=== PATIENT | female | born 1955 | race Caucasian/White ===

== ENCOUNTER → 2021-08-31 | Outpatient (CLI) | payer MEDICARE, OTHER ==
[2021-08-31 09:46] LABS: HCT 42.2 % (34.0-46.0); HGB 13.9 gm/dL (11.4-16.0); MCH 28.8 pg (25.0-35.0); MCV 87.3 fL (80.0-100.0); Mean Platelet Volume 7.4; Platelet Count 268 k/uL (150-450); RBC 4.83 m/uL (3.80-5.40); RDW 14.3 % (11.5-15.5); WBC 6.6 k/uL (3.8-10.6)
[2021-08-31 09:53] LABS: Appearance,Urine Clear (Clear); Bacteria,Urine Rare /hpf; Bilirubin,Urine 2+ (Negative); Blood,Urine Negative (Negative); Color,Urine Yellow; Glucose,Urine (UA) Negative (Negative); Ketones,Urine 1+ (Negative); Leukocyte Esterase,Urine Small (Negative); Nitrite,Urine Negative (Negative); Protein,Urine Negative (Negative); RBC,Urine 2 /hpf (0-5); Specific Gravity,Urine 1.014 (1.001-1.035); Squamous Epithelial Cell,Urine 2 /hpf (0-4); Urobilinogen,Urine <2.0 mg/dL (<2.0); WBC,Urine 5 /hpf (0-5)
[2021-08-31 09:58] LABS: INR 0.9 (<1.2)
[2021-08-31 09:59] LABS: Partial Thromboplastin Time 24.7 sec (22.0-30.0); Prothrombin Time 10.1 sec (9.0-12.0)
[2021-08-31 10:11] LABS: ALT 62 U/L (4-34); AST 37 U/L (14-36); African American GFR (CKD) >90 (>60 ml/min/1.73 sqM); Albumin 4.2 g/dL (3.5-5.0); Alkaline Phosphatase 142 U/L (38-126); Anion Gap 11 mmol/L; Blood Urea Nitrogen 17 mg/dL (7-17); Calcium 10.4 mg/dL (8.4-10.2); Carbon Dioxide 27 mmol/L (22-30); Chloride 101 mmol/L (98-107); Glucose 109 mg/dL (74-99); Non-African American GFR(CKD) >90 (>60 ml/min/1.73 sqM); Potassium 3.9 mmol/L (3.5-5.1); Sodium 139 mmol/L (137-145); Total Bilirubin 0.9 mg/dL (0.2-1.3); Total Protein 7.5 g/dL (6.3-8.2)
== END | disposition home or self-care (01) ==
LOC: LABPAT 08:36
PROVIDERS: ATTEND Orthopaedic Surgery Hand Surgery
DX: Z01.812 Encounter for preprocedural laboratory examination (principal)
CPT/HCPCS: 80053; 81001; 85027; 85610; 85730; 87070

== ENCOUNTER 2021-09-07 07:44 | Day surgery (SDC) | payer MEDICARE, OTHER ==
[2021-09-03 11:55] VITALS: BMI 39.1
[~2021-09-07 07:44] MED LIST: ACETAMINOPHEN TAB 500 MG TAB PO PRN; GABAPENTIN 300 MG CAP PO PRN; LACTATED RINGERS 1,000 ML IV SCH; LIDOCAINE 1% (10MG/ML) FOR IV START INTRADERMA PRN; MELOXICAM 7.5 MG TAB PO PRN; ONDANSETRON 4 MG/2 ML VIAL IVP ONE; TRANEXAMIC ACID 1,000 MG in SODIUM CHLORIDE 0.9% 100 ML IVPB PRN
[2021-09-07] MEDS ORDERED: HYDROmorphone (PF) 1 MG/ML ONE (08:53)
[2021-09-07] MEDS ORDERED: SUCCINYLCHOLINE CHLORIDE VIAL 200 MG/10 ML VIAL IV ONE (08:53)
[2021-09-07] MEDS ORDERED: fentaNYL (PF) 50 MCG/ML 2 ML AMP ONE (08:53)
[2021-09-07] MEDS ORDERED: HEPARIN SODIUM,PORCINE 10,000 UNIT/ML 1 ML VIAL ONE (08:53)
[2021-09-07] MEDS ORDERED: SODIUM CHLORIDE 0.9% IRRIG 1,000 ML BTL IRRIGATION ONE (08:53)
[2021-09-07] MEDS ORDERED: MIDAZOLAM 2 MG/2 ML VIAL ONE (08:53)
[2021-09-07] MEDS ORDERED: PROPOFOL 10 MG/ML 20 ML VIAL IV ONE (08:53)
[2021-09-07] MEDS ORDERED: SODIUM CHLORIDE 0.9% 100 ML BAG ONE (08:53)
[2021-09-07] MEDS ORDERED: LIDOCAINE 1% INJ 10MG/ML (20 ML MDV) ONE (08:53)
[2021-09-07] MEDS ORDERED: KETAMINE 10 MG/ML 20 ML VIAL ONE (08:53)
[2021-09-07] MEDS ORDERED: TRANEXAMIC ACID 1,000 MG/10 ML VIAL ONE (08:53)
[2021-09-07] MEDS ORDERED: ceFAZolin 1,000 MG in SODIUM CHLORIDE 0.9% 1,000 ML IRRIGATION ONE (08:56)
[2021-09-07] MEDS ORDERED: HYDROmorphone 0.5 MG/0.5 ML SYRINGE IVP PRN ×2 (08:57)
[2021-09-07] MEDS ORDERED: NALOXONE 0.4 MG/ML 1 ML VIAL IV PRN (08:57)
[2021-09-07] MEDS ORDERED: ONDANSETRON 4 MG/2 ML VIAL IVP PRN (08:57)
[2021-09-07] MEDS ORDERED: HYDROmorphone 0.2 MG/1 ML SYRINGE IVP PRN (08:57)
[2021-09-07] MEDS ORDERED: HYDROcodone/APAP 7.5-325MG 1 EACH TAB PO PRN ×2 (08:58)
[2021-09-07] MEDS ORDERED: SODIUM CHLORIDE 0.9% 1,000 ML IV SCH (09:00)
[2021-09-07] MEDS: ROPIVACAINE 246.25 MG, EPINEPHrine 0.5 MG, KETOROLAC 30 MG, cloNIDine HCL/PF 80 MCG, WA... MISCELLANE PRN ×10 (09:24→10:11)
--- NOTE | 2021-09-07 10:16 | P.OP ---
Date of Procedure: 09/07/21 Preoperative Diagnosis: Severe osteoarthritis right hip Postoperative Diagnosis: Severe osteoarthritis right hip Procedure(s) Performed: Right total hip arthroplasty with a direct anterior approach Implants: [employer] Nephew Polarstem standard size 3 [employer]hew R3, 3 hole hemispherical acetabular shell, 52 mm [employer]hew Reflection 6.5 mm cancellus screw, 20 mm 2 [employer] R3, XLPE 20 acetabular liner [employer] Nephew Oxinium femoral head 36 m, +0 All components were press-fit. The articulation is Oxinium on polyethylene. Anesthesia: GETA Surgeon: Rajinder Ramsey Waste Machine Offbearer #1: Miriam Engle Estimated Blood Loss (ml): 100 Pathology: other (Femoral head) Condition: stable Disposition: PACU Indications for Procedure: After failure of conservative treatment we discussed the surgical and nonsurgica l treatment options at length. Patient wishes to proceed with a total hip arthroplasty with a direct anterior approach. Complications specific to this procedure were discussed at length, including but not limited to infection, leg length discrepancy, dislocation, nerve injury, and fracture. Covid-19 was also discussed at length with the patient, and they are aware of the current policies and procedures. The patient was given the option of delaying surgery, but they elect to proceed knowing these risks. Patient is aware of all these complications and informed consent was obtained Operative Findings: The operative findings are consistent with severe osteoarthritis of the right hip Description of Procedure: Patient was seen and evaluated in the preoperative area and the consent was reviewed. The operative site was marked with a skin marker. The patient was then brought to the operating room and given preoperative antibiotics intravenously. 1 g of Tranexamic acid was also given intravenously. A general anesthetic was administered by the anesthesia department. The patient was then placed on the [place] table with the bony prominences well-padded. The hip area was then prepped with a ChloraPrep solution and draped in the usual sterile fashion. A universal timeout was then performed, which confirmed the patient's name, surgical site, ALLERGIES, and procedure being performed on the consent. Next the incision site was located at 1 cm distal and 2 cm lateral to the anterior superior iliac spine. The skin and subcutaneous tissues were sharply incised. Incision was carefully dissected down to the fascia overlying the tensor fascia vera muscle. This fascia was then incised in line with the incision. Care was taken to stay laterally in order to avoid injuring the lateral femoral cutaneous nerve. Next, using blunt finger dissection, the tensor fascia vera muscle was dissected off its investing fascia. The muscle was then carefully retracted laterally with a cobra retractor over the lateral neck of the femur. Next, the circumflex vessels were identified and cauterized using the AquaMantis device. The anterior hip capsule was then exposed. The capsule was then opened and an inverted T fashion. Cobra retractors were then placed intracapsularly. The retractors were maintained intracapsular throughout the procedure. The proximal femur was then visualized. A small amount of traction was placed on the leg. The femoral neck was then osteotomized appropriate level above the lesser trochanter. A small wedge of bone was then removed from the remaining femoral head. Next, using a corkscrew the femoral head was removed from the acetabulum. On gross visual inspection, the femoral head had complete loss of articular cartilage and multiple periarticular osteophytes. The femoral head was then measured. Attention was then turned to the acetabulum. The acetabulum was exposed and any remaining labrum was excised. Sequential reaming of the acetabulum was performed using fluoroscopic guidance until there was a good bed of bleeding cancellus bone. When the appropriate size was reached, a trial was then placed. The position and fit of the trial was checked with fluoroscopy. The trial was then removed. Then, using fluoroscopic guidance, the final implant was impacted at 20 of anteversion and 40 of abduction, and fully seated in the acetabulum. 2 screws were then placed in the acetabulum. Again fluoroscopy was used to check position of the screws. Next, the liner was then impacted, with a 20 elevated liner located in the anterior superior quadrant. Component locking was confirmed. Attention was then directed to the femur. With the aid of the [place] table, the femur was externally rotated to approximately 130, extended, and adducted under the opposite leg. A side hook was then placed under the proximal femur, and the side hook elevator was used to elevate the proximal femur while releasing the capsule. Retractors were then placed. A capsular release was performed, as well as a release of the conjoined tendon, which afforded excellent visualization of the proximal femur. Next, a box osteotome was used to lateralize the proximal femur. A marker hand was then used to locate the femoral canal. Sequential broaching was then performed with appropriate size which afforded excellent fixation in the proximal femur. A trial was then placed with appropriate head and neck, and the hip was gently reduced with the aid of the [place] table. Fluoroscopy was then used to check position of the components, as well as to ensure equal leg lengths. The hip was then gently dislocated and the trials were then removed. Final implants were then impacted and the hip was again reduced. Final fluoroscopic x-rays confirmed that the components were in anatomic position, as well as equal leg lengths. The hip was also taken through range of motion, and found to be stable. The hip was then copiously irrigated with antibiotic solution with pulsatile lavage. The hip was then irrigated with Irrisept solution. The soft tissues were then injected with a ropivacaine solution, which consisted of 246.25 mg of ropivacaine, 0.5 mg of epinephrine, 30 mg of Toradol, 80 g of clonidine, and 48.45 mL of sterile water, for a total of 100 mL of fluid injected. A second dose of 1 g of Tranexamic acid was also given intravenously. Any blood collected by Cell [employer]ver was then returned to the patient at this time. The fascia was then closed with 2-0 strata fix suture. The subcutaneous tissue was closed with 3-0 Vicryl. The subcuticular tissue was closed with 3-0 strata fix suture. The skin was then closed with Exofin skin glue. After the glue and dried, and Optifoam silver impregnated dressing was applied. The patient was then transferred to the recovery room in stable condition. The senior executive assistant SE Ochoa was required due to the complexity of surgery, and the need for skilled surgical scrub technician for positioning, draping, exposure, retraction, and closure of the wound.
--- NOTE | 2021-09-07 10:26 | XR ---
EXAMINATION TYPE: XR Hip Limited RT DATE OF EXAM: 09/07/2021 COMPARISON: NONE HISTORY: Postop TECHNIQUE: One view submitted. FINDINGS: There is postsurgical change in near anatomic alignment. There is soft tissue edema and emphysema. IMPRESSION: 1. Postoperative change. Appears in near-anatomic alignment.
--- NOTE | 2021-09-07 10:30 | FL ---
EXAMINATION TYPE: FL guidance operating room DATE OF EXAM: 09/07/2021 HISTORY: Fluoroscopy time 8 seconds of fluoroscopy provided. IMPRESSION: 1. Fluoroscopy time.
[2021-09-07] MEDS ORDERED: diphenhydrAMINE 50 MG/ML 1 ML VIAL ONE (10:57)
[2021-09-07] MEDS ORDERED: KETOROLAC 15 MG/ML 1 ML VIAL ONE (10:57)
[2021-09-07] MEDS: HYDROmorphone 0.5 MG/0.5 ML SYRINGE IVP PRN ×2 (10:58→11:26)
[2021-09-07] MEDS ORDERED: diphenhydrAMINE 50 MG/ML 1 ML VIAL IVP ONE ×2 (11:00→11:05)
[2021-09-07 11:01] VITALS: TEMP 97.7
[2021-09-07] MEDS ORDERED: KETOROLAC 15 MG/ML 1 ML VIAL IVP ONE (11:02)
--- NOTE | 2021-09-07 11:50 | XR ---
EXAMINATION TYPE: XR Hip Limited RT DATE OF EXAM: 09/07/2021 Comparison: None Clinical History: 66-year-old female Status post hip surgery, assess surgical alignment Findings: Image shows placement of right internal artery plasty. Both acetabular cup and femoral stem component s of the prosthesis appear well seated without periprosthetic fracture. Alignment grossly anatomic. S ome degenerative subarticular sclerosis at the right SI joint. A surgical clip is present in the righ t side of the pelvis. Some densities adjacent to the ischial tuberosity could represent chronic tendi nopathy of the hamstrings origin. Scattered soft tissue air related to recent operation. Impression: Uncomplicated postoperative appearance right hip total arthroplasty.
[2021-09-07 13:36] VITALS: RESP 16
[2021-09-07 14:14] VITALS: BP 103/66; PULSE 77
== END 2021-09-07 14:55 | disposition home health service (06) ==
LOC: OR 07:44
PROVIDERS: ATTEND Orthopaedic Surgery
DX: M16.11 Unilateral primary osteoarthritis, right hip (principal); I10 Essential (primary) hypertension; E78.5 Hyperlipidemia, unspecified
CPT/HCPCS: 27130; 97110; 97161; 86891; 88300; 73501; C1776; J2250; J0171; J0330; J1200; J1644; J0690 ×2; J2405; J2001; J3010; J1885 ×2; J1170 ×2; J2795; J2704; J0735; 86850; 86900; 86901

== ENCOUNTER 2022-04-01 07:28 | Day surgery (SDC) | payer MEDICARE, OTHER ==
[2022-03-30 11:44] VITALS: BMI 42.3
[~2022-04-01 07:28] MED LIST changes: -ACETAMINOPHEN TAB 500 MG TAB PO PRN; +DEXAMETHASONE SOD PHOSPHATE 4 MG/ML 1 ML VIAL IV ONE; -GABAPENTIN 300 MG CAP PO PRN; +HYDROmorphone 0.5 MG/0.5 ML SYRINGE IVP PRN; -MELOXICAM 7.5 MG TAB PO PRN; +Pre Op ABX Message 1 EACH MISC MISCELLANE ONE; -TRANEXAMIC ACID 1,000 MG in SODIUM CHLORIDE 0.9% 100 ML IVPB PRN
[2022-04-01 08:54] LABS: Basophils % (A) 1 %; Eosinophils # (A) 0.2 k/uL (0-0.7); Eosinophils % (A) 4 %; HCT 38.9 % (34.0-46.0); HGB 12.8 gm/dL (11.4-16.0); Lymphocytes # (A) 1.4 k/uL (1.0-4.8); Lymphocytes % (A) 24 %; MCH 29.4 pg (25.0-35.0); MCHC 32.8 g/dL (31.0-37.0); MCV 89.5 fL (80.0-100.0); Mean Platelet Volume 8.3; Monocytes # (A) 0.4 k/uL (0-1.0); Monocytes % (A) 7 %; Neutrophils # (A) 3.6 k/uL (1.3-7.7); Neutrophils % (A) 62 %; Platelet Count 261 k/uL (150-450); RBC 4.35 m/uL (3.80-5.40); RDW 14.6 % (11.5-15.5); WBC 5.7 k/uL (3.8-10.6)
[2022-04-01] MEDS ORDERED: fentaNYL (PF) 50 MCG/ML 2 ML AMP IVP ONE (08:59)
[2022-04-01] MEDS ORDERED: MIDAZOLAM 2 MG/2 ML VIAL IVP ONE (08:59)
[2022-04-01 09:01] LABS: ALT 22 U/L (4-34); AST 27 U/L (14-36); African American GFR (CKD) >90 (>60 ml/min/1.73 sqM); Alkaline Phosphatase 84 U/L (38-126); Anion Gap 7 mmol/L; Blood Urea Nitrogen 15 mg/dL (7-17); Calcium 9.3 mg/dL (8.4-10.2); Carbon Dioxide 27 mmol/L (22-30); Chloride 105 mmol/L (98-107); Glucose 93 mg/dL (74-99); Non-African American GFR(CKD) >90 (>60 ml/min/1.73 sqM); Potassium 4.2 mmol/L (3.5-5.1); Sodium 139 mmol/L (137-145); Total Bilirubin 0.8 mg/dL (0.2-1.3); Total Protein 7.1 g/dL (6.3-8.2)
[2022-04-01] MEDS ORDERED: ROPIVACAINE 5 MG/ML 30 ML VIAL ONE (09:30)
[2022-04-01] MEDS ORDERED: SODIUM CHLORIDE 0.9% (PF) 10 ML VIAL ONE (09:30)
[2022-04-01] MEDS ORDERED: fentaNYL (PF) 50 MCG/ML 2 ML AMP ONE (09:30)
[2022-04-01] MEDS ORDERED: LIDOCAINE 2% INJ 20 MG/ML (2 ML VIAL) ONE (09:30)
[2022-04-01] MEDS ORDERED: HYDROmorphone (PF) 1 MG/ML ONE (09:30)
[2022-04-01] MEDS ORDERED: PROPOFOL 10 MG/ML 20 ML VIAL IV ONE (09:30)
[2022-04-01] MEDS ORDERED: MIDAZOLAM 2 MG/2 ML VIAL ONE (09:30)
[2022-04-01] MEDS ORDERED: SUCCINYLCHOLINE CHLORIDE 100 MG/5 ML SYR IV ONE (09:30)
[2022-04-01] MEDS ORDERED: SODIUM CHLORIDE 0.9% 100 ML with ceFAZolin 3,000 MG IV ONE ×2 (09:40)
--- NOTE | 2022-04-01 09:47 | P.ANPRN ---
Procedure Note - Anesthesia - Nerve Block Performed Right Adductor Canal Time Out Performed: Yes (08:58) Date of Procedure: 04/01/22 Procedure Start Time: Procedure Stop Time: : Location of Patient: PreOp Indication: Acute Post-Operative Pain, Requested by Surgeon (DR Dobbins) Sedation Type: Sedate with meaningful contact maintained Preparation: Sterile Prep Position: Supine Catheter: None Needle Types: Pajunk Needle Gauge: 21 Ultrasound used to visualize needle placement: Yes Ultrasound used to observe medication spread: Yes Injectate: 0.5% Ropivacaine (see comment for volume) (15cc + 5 cc PF Normal saline) Blood Aspirated: No Pain Paresthesia on Injection Noted: No Resistance on Injection: Normal Image Stored and Saved: Yes Events: Uneventful and Well Tolerated
--- NOTE | 2022-04-01 09:49 | P.ANPRN ---
Procedure Note - Anesthesia - Nerve Block Performed Right Popliteal Time Out Performed: Yes Date of Procedure: 04/01/22 Procedure Start Time: :10 Procedure Stop Time: : Location of Patient: PreOp Indication: Acute Post-Operative Pain, Requested by Surgeon (Dr Dobbins) Sedation Type: Sedate with meaningful contact maintained Preparation: Sterile Prep Position: Left Lateral Catheter: None Needle Types: Pajunk Needle Gauge: 21 Ultrasound used to visualize needle placement: Yes Ultrasound used to observe medication spread: Yes Injectate: 0.5% Ropivacaine (see comment for volume) (15cc +5 cc PF Normal saline) Blood Aspirated: No Pain Paresthesia on Injection Noted: No Resistance on Injection: Normal Image Stored and Saved: Yes Events: Uneventful and Well Tolerated
[2022-04-01] MEDS ORDERED: ceFAZolin 1,000 MG in SODIUM CHLORIDE 0.9% 1,000 ML IRRIGATION ONE (10:28)
[2022-04-01] MEDS ORDERED: ALBUTEROL NEBULIZED 2.5 MG/3 ML INHALATION ONE (12:50)
[2022-04-01 12:56] VITALS: TEMP 97.6
[2022-04-01 14:13] VITALS: BP 150/76
[2022-04-01 15:20] VITALS: PULSE 93; RESP 20
--- NOTE | 2022-04-21 08:09 | P.OP ---
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 Gastroc equinus right ankle Postoperative Diagnosis: 1. Same 2. Same Procedure(s) Performed: 1. Triple arthrodesis right foot 2. Percutaneous tendo Achilles lengthening right ankle Implants: 7.0 CREED screws x 2 [id number] compression angely x 2 5.0 threaded head screw Anesthesia: GABINO Surgeon: Eduar Dobbins Estimated Blood Loss (ml): 20 Pathology: none sent Condition: stable Disposition: PACU Description of Procedure: Prior to the patient being brought to the OR, anesthesia administered a nerve block on the affected extremity. Then the patient was brought in the operating room and placed on the table in the supine position. Time out was taken to confirm patient identifiers, correct procedure and correct laterality of surgery. When all staff in the room were in agreement with the time out, anesthesia induced and placed the patient under general anesthesia. A well padded tourniquet was applied to the thigh of the operative leg and then the leg was prepped and draped in the usual manner. The leg was exanguinated with a Esmarch bandage, and the tourniquet was inflated to 250 mmHg. Attention was directed to the lateral hindfoot wear a curvilinear incision was made from the tip of the fibula to the dorsal aspect of the cuboid, which also included the calcaneal-cuboid joint. The incision was deepened to the subQ careful to identify, avoid and retract any neurovascular structures and cauterizing any bleeding vessels. Blunt dissection was carried down to the joint capsule of the subtalar joint. A capsular incision was made to expose the joint. Using a combination of various instruments, the articular cartilage and subchondral bone was completely debrided. The joint surfaces were then aggressively fenestrated to promote bleeding. Then 10cc of BMP with cancellous chips were placed between the fusion surfaces. Then, under direct fluoroscopic visualization, guidepins for 7.0mm screws were inserted on the posterior-plantar aspect of the calcaneus, just inferior to the Achilles insertion. Then, with the hindfoot held in corrected alignment, screws were placed over the guidewires and advanced until the distal threads crossed the arthrodesis site and the heads wer e flush with the cortex of the calcaneus. Once the screws were in place, direct and fluoroscopic visualization confirmed compression of the arthrodesis site. Then the calcaneal-cuboid joint was entered and the capsule incised. A sagittal saw was used to remove the articular cartilage and subchondral bone. The surfaces were then brought in contact and the saw blade inserted to provide flat, even contact. 2cc of BMP with cancellous ships were placed between the fusion segments. A guidewire was placed across the joint for temporary fixation. Then drill holes for a compression staple were made through the provided guide on either side of the fusion site. The staple was placed in the barrow worker helper with the legs and 90 deg angles. The staple was inserted into the drill holes and placed as deep as the barrow worker helper would allow. Then the barrow worker helper was released to allow for the staple legs to compress. The staple was then impacted to set as flush to the bone as possible. The fusion site was in good contact and stable. Proper positioning and compression of the fusion site were confirmed with fluoroscopy. The area was then thoroughly irrigated with sterile saline. Deep capsular closure was completed with 0 Vicryl, fascial closure was done with 2-0 Vicryl, subcutaneous closure with 4-0 Monocryl and the skin closed with angely. Attention was then directed over the posterior ankle. Small stab incisions were made beginning approximately 1.5cm from the insertion and each was spaced 1.5cm apart, 2 on the medial and one on the lateral. The scalpel blade was advanced and approx 1/3 of the tendon was resected as the ankle was dorsiflexed until a palpable release was felt. There was increased ankle dorsiflexion upon release. The incisions were closed with angely. Attention was then directed to the medial aspect of the foot. A linear incision was made over the midfoot for access to the taolnavicular joint. The incision was deepened to the subQ careful to identify, avoid and retract any neurovasc ular structures and cauterizing any bleeding vessels. A capsular incision was made over the talonavicular joint and then the tissue was reflected to expose the joint.Using a combination of various instruments, the articular cartilage and subchondral bone was completely debrided. The joint surfaces were then aggressively fenestrated to promote bleeding. The wound was irrigated with sterile saline. Then 5cc of BMP with cancellous bone chips was placed between the fusion segments. The joint was held into corrected alignment and then a guidewire for a 5mm cannulated screw was placed from the navicular and into the talus. Fluoroscopy was used to confirm the proper placement of the wire. A 5mm headless compression screw was then placed over the wire and advanced until the distal threads were past the arthrodesis site and the threads on the head full seated and engaged in the navicular. Fluoroscopy confirmed proper placement of the screw. hen drill holes for a compression staple were made through the provided guide on either side of the fusion site. The staple was placed in the barrow worker helper with the legs and 90 deg angles. The staple was inserted into the drill holes and placed as deep as the barrow worker helper would allow. Then the barrow worker helper was released to allow for the staple legs to compress. The staple was then impacted to set as flush to the bone as possible. The fusion site was in good contact and stable. Proper positioning and compression of the fusion site were confirmed with fluoroscopy. The area was then thoroughly irrigated with sterile saline. Deep capsular closure was completed with 0 Vicryl, fascial closure was done with 2-0 Vicryl, subcutaneous closure with 4-0 Monocryl and the skin closed with angely. final fluoroscopic imaging confirmed correction of the deformity, proper placement of all hardware and good bony contact across all fusion sites. An Arthrex Jumpstart dressing was applied over all incisions. Then a bulky, dry dressing was applied to the foot and ankle. The tourniquet was released and CFT returned to all digits on the foot. The patient was then placed in a well padded. well molded plaster posterior mold/sugartong splint. The foot and ankle were held in neutral until the splint was dry. Then anesthesia was reversed and the patient take to recovery with vital signs stable.
== END 2022-04-01 15:10 | disposition home or self-care (01) ==
LOC: OR 07:28
PROVIDERS: ATTEND Podiatrist
DX: M21.41 Flat foot [pes planus] (acquired), right foot (principal); I10 Essential (primary) hypertension; E78.5 Hyperlipidemia, unspecified; M54.9 Dorsalgia, unspecified; R63.5 Abnormal weight gain; Z97.3 Presence of spectacles and contact lenses; M19.90 Unspecified osteoarthritis, unspecified site; Z90.49 Acquired absence of other specified parts of digestive tract; Z96.641 Presence of right artificial hip joint; Z98.890 Other specified postprocedural states; Z83.3 Family history of diabetes mellitus; Z82.49 Family history of ischemic heart disease and other diseases of the circulatory system; Z87.891 Personal history of nicotine dependence; Z79.1 Long term (current) use of non-steroidal anti-inflammatories (NSAID); Z79.899 Other long term (current) drug therapy; Z88.1 Allergy status to other antibiotic agents
CPT/HCPCS: 64447; 64445; 76942; 80053; 85025; 28715; C1713; J2250; J1100; J2405; J0690; J3010; J1170; J2795; J0330; J2704; J2001

== ENCOUNTER 2023-03-10 05:49 | Day surgery (SDC) | payer MEDICARE, OTHER ==
[2023-03-06 18:17] VITALS: BMI 45.4
[~2023-03-10 05:49] MED LIST changes: -DEXAMETHASONE SOD PHOSPHATE 4 MG/ML 1 ML VIAL IV ONE; -HYDROmorphone 0.5 MG/0.5 ML SYRINGE IVP PRN; -LACTATED RINGERS 1,000 ML IV SCH; -LIDOCAINE 1% (10MG/ML) FOR IV START INTRADERMA PRN; -ONDANSETRON 4 MG/2 ML VIAL IVP ONE; -Pre Op ABX Message 1 EACH MISC MISCELLANE ONE; +ceFAZolin 3 GM in SODIUM CHLORIDE 0.9% 100 ML IVPB PRN
[2023-03-10] MEDS ORDERED: MIDAZOLAM 2 MG/2 ML VIAL IV PRN (06:17)
[2023-03-10] MEDS ORDERED: DEXAMETHASONE SOD PHOSPHATE 4 MG/ML 1 ML VIAL IV ONE (06:17)
[2023-03-10] MEDS ORDERED: ONDANSETRON 4 MG/2 ML VIAL IVP ONE ×2 (06:17→11:42)
[2023-03-10] MEDS: LACTATED RINGERS 1,000 ML IV SCH ×2 (06:39→07:24)
[2023-03-10] MEDS ORDERED: fentaNYL (PF) 50 MCG/ML 2 ML AMP IVP ONE (06:53)
[2023-03-10] MEDS ORDERED: MIDAZOLAM 2 MG/2 ML VIAL ONE (07:21)
[2023-03-10] MEDS ORDERED: SUCCINYLCHOLINE CHLORIDE 200 MG/10 ML VIAL IV ONE (07:21)
[2023-03-10] MEDS ORDERED: PHENYLEPHRINE-0.9% NACL SYG 1,000 MCG/10 ML SYRINGE ONE (07:21)
[2023-03-10] MEDS ORDERED: LIDOCAINE 4% LTA KIT (4 ML) TOPICAL ONE (07:21)
[2023-03-10] MEDS ORDERED: ROPIVACAINE 5 MG/ML 30 ML VIAL ONE (07:21)
[2023-03-10] MEDS ORDERED: fentaNYL (PF) 50 MCG/ML 2 ML AMP ONE (07:21)
[2023-03-10] MEDS ORDERED: SODIUM CHLORIDE 0.9% (PF) 10 ML VIAL ONE (07:21)
[2023-03-10] MEDS ORDERED: LIDOCAINE 2% INJ 20 MG/ML (2 ML VIAL) ONE (07:21)
[2023-03-10] MEDS ORDERED: ePHEDrine 50 MG/ML 1 ML VIAL ONE (07:21)
[2023-03-10] MEDS ORDERED: PROPOFOL 10 MG/ML 20 ML VIAL IV ONE (07:21)
[2023-03-10] MEDS ORDERED: ceFAZolin 1,000 MG in SODIUM CHLORIDE 0.9% 1,000 ML IRRIGATION ONE (07:26)
[2023-03-10] MEDS ORDERED: LACTATED RINGERS 1,000 ML IV ONE (09:00)
[2023-03-10 09:54] VITALS: TEMP 97
[2023-03-10] MEDS: HYDROmorphone 0.5 MG/0.5 ML SYRINGE IVP PRN ×3 (10:06→10:30)
[2023-03-10 10:20] VITALS: RESP 18
[2023-03-10] MEDS ORDERED: ALBUTEROL NEBULIZED 2.5 MG/3 ML INHALATION ONE (10:47)
[2023-03-10] MEDS ORDERED: HYDROcodone/APAP 7.5-325MG 1 EACH TAB ONE (11:29)
[2023-03-10] MEDS ORDERED: HYDROcodone/APAP 7.5-325MG 1 EACH TAB PO ONE (11:30)
[2023-03-10] MEDS ORDERED: ONDANSETRON 4 MG/2 ML VIAL ONE (11:40)
--- NOTE | 2023-03-10 12:18 | P.OP ---
Date of Procedure: 03/10/23 Preoperative Diagnosis: Acquired deformity of left foot Postoperative Diagnosis: Same Procedure(s) Performed: Triple arthrodesis left foot Implants: CREED cannulated screws 4 Medline compression staple 2 ProteOS allograft 15 mL Anesthesia: GETA Surgeon: Eduar Dobbins Estimated Blood Loss (ml): 20 Pathology: none sent Condition: stable Disposition: PACU Description of Procedure: Prior to the patient being brought to the operating, anesthesia administered nerve block and left lower extremity. The patient was then brought into the operative room and placed on table in supine position. Timeout was taken to confirm correct patient identifiers, correct laterally of surgery, correct procedure. When all staff in the room were in agreement with the timeout the patient was induced and placed under general anesthesia. A well-padded tourniquet was placed the left thigh and a wedge underneath the left hip to internally rotate the left leg. Then the left leg was prepped and draped usual manner. The left leg was exsanguinated and the tourniquet inflated to 250 motors mercury. Inches directed over the lateral aspect of the hindfoot where a incision was made beginning at the tip of the lateral malleolus extending over the sinus tarsi and ending at the calcaneocuboid joint. The incision was deepened under the subcutaneous tissue careful to identify, avoid, and retract any neurovascular structures and cauterize any bleeding vessels. The capsular tissues over the subtalar and calcaneocuboid joints were incised and the tissues reflected dorsally and plantarly to expose the joints. The subtalar joint was addressed first. The lateral soft tissue release of there was adequate exposed to the joint surface. A joint prepped her was then inserted and used to remove the articular cartilage and subchondral bone of the conjoining surfaces of the talus and calcaneus. Then both surfaces were aggressively fenestrated with a 2 mm drill bit. Then the same bur was used to remove the articular surfaces of the calcaneus and cuboid at the calcaneocuboid joint. Once adequate debridement was completed, both surfaces were aggressively fenestrated. Then attention was directed to the medial aspect of the foot where a linear incision was made over the talonavicular joint. The incision was deepened down to the saphenous tissue careful to identify, avoid, and retract any neurovascular structures and cauterize any bleeding vessels. The capsule of the talonavicular joint was incised superior to the posterior tibial tendon and reflected dorsally and plantarly to allow access to the joint. The rotary bur was inserted and used to remove the articular surface of the head of the talus and the conjoining surfaces of the navicular. The joint was accessed also through the previous lateral incision to remove the lateral articular cartilage its difficult to get from a medial approach. Once adequate debridement was completed, the area was aggressively fenestrated. Allograft was inserted at the talonavicular joint arthrodesis site and then the talonavicular joint was reduced in the forefoot slightly plantar flexed on the talus to correct the sagittal plane collapse. A guidewire for a 5.6 mm screw was then inserted at the junction between the navicular and medial cuneiform and advanced parallel to the long axis of the talar body and laterally for adequate purchase within the talar body. With the wire in place attention was redirected back to the subtalar joint. Under direct fluoroscopic visualization guidewires for the large fragment screws were inserted in the posterior plantar aspect of the calcaneus this lateral to the midline. The wires were advanced superiorly distally and medially so that there would across the subtalar joint. Both screws were placed parallel. Fluoroscopy confirmed proper placement of the wires on the lateral and AP views. Both screws were inserted until the threaded heads engaged the cortex of the calcaneus and provided excellent compression at the arthrodesis site. Then attention was directed back to the talonavicular arthrodesis site were the screw was inserted over the guidewire and advanced to compress the talonavicular joint of the medial aspect. Then a small stab incision was made over the lateral aspect of the forefoot at the navicular. Another guidewire for screw was placed through the lateral side of the navicular and into the talar body so that the screws crossed. Another screw was placed and tightened until a compressed the arthrodesis site. Fluoroscopic imaging showed proper placement of the hardware and compression of the talonavicular joint. Then attention was directed to the calcaneocuboid joint with a bone graft was inserted between the arthrodesis segments. Drill holes for a 20 mm staple were done on the more dorsal aspect of the arthrodesis site. The staple was loaded with the arms stretched and then inserted the drill holes in the angely released causing compression across the arthrodesis site. The impactor was used to seat the staple flush. Another 20 mm compression staple was done on the more plantar aspect of the arthrodesis site. The drill holes were made and then this staple inserted with the leg stretched. The paper inserter was released allowing the legs to compress and then the impactor used to flush the staple. Fluoroscopic imaging confirmed good bony compression at the arthrodesis site with proper placement of all angely. An overall fluoroscopic image was taken to show that there was compression at all the arthrodesis sites and correction of the primary deformity foot. All wounds were thoroughly irrigated with antibiotic saline. Deep closure of bone at both incisions was done with 0 Vicryl. Subcu closure done for Monocryl. And skin closure done with angely. Angely were also used for the holes for the commercial producer ior calcaneal screws. An Arthrex jumpstart dressing was placed over the incisions and a bulky dry dressing applied to the left foot. The tourniquet was released and capillary refill return to all digits on the left foot. The patient was placed in a bulky [place]عر[place] bandage. And then a plaster posterior mold/sugar tong splint was applied. Anesthesia was reversed and the patient was taken to recovery with vital signs stable.
[2023-03-10 13:22] VITALS: BP 131/69; PULSE 71
--- NOTE | 2023-03-10 14:33 | P.ANPRN ---
Procedure Note - Anesthesia - Nerve Block Performed Left Adductor Canal Time Out Performed: Yes (06:53) Date of Procedure: 03/10/23 Procedure Start Time: :53 Procedure Stop Time: :58 Location of Patient: PreOp Indication: Acute Post-Operative Pain, Requested by Surgeon (Dr Dobbins) Sedation Type: Sedate with meaningful contact maintained Preparation: Sterile Prep Position: Supine Catheter: None Needle Types: Pajunk Needle Gauge: 21 Ultrasound used to visualize needle placement: Yes Ultrasound used to observe medication spread: Yes Injectate: 0.5% Ropivacaine (see comment for volume) (15cc +55 PF Normal saline) Blood Aspirated: No Pain Paresthesia on Injection Noted: No Resistance on Injection: Normal Image Stored and Saved: Yes Events: Uneventful and Well Tolerated
--- NOTE | 2023-03-10 14:34 | P.ANPRN ---
Procedure Note - Anesthesia - Nerve Block Performed Left Popliteal Time Out Performed: Yes Date of Procedure: 03/10/23 Procedure Start Time: 06:59 Procedure Stop Time: 07:04 Location of Patient: PreOp Indication: Acute Post-Operative Pain, Requested by Surgeon (Dr Dobbins) Sedation Type: Sedate with meaningful contact maintained Preparation: Sterile Prep Position: Right Lateral Catheter: None Needle Types: Pajunk Needle Gauge: 21 Ultrasound used to visualize needle placement: Yes Ultrasound used to observe medication spread: Yes Injectate: 0.5% Ropivacaine (see comment for volume) (15cc +5cc PF Normal saline) Blood Aspirated: No Pain Paresthesia on Injection Noted: No Resistance on Injection: Normal Image Stored and Saved: Yes Events: Uneventful and Well Tolerated
== END 2023-03-10 13:21 | disposition home or self-care (01) ==
LOC: OR 05:49
PROVIDERS: ATTEND Podiatrist
DX: M21.6X2 Other acquired deformities of left foot (principal); G89.18 Other acute postprocedural pain; I10 Essential (primary) hypertension; Z82.49 Family history of ischemic heart disease and other diseases of the circulatory system; Z83.3 Family history of diabetes mellitus; Z79.899 Other long term (current) drug therapy; Z48.89 Encounter for other specified surgical aftercare
CPT/HCPCS: 64447; 64445; 76942; 28715; C1713; J2250; J0330; J1100; J0690 ×2; J2405; J3010; J2795; J2370; J2704; J1170; J2001